=== PATIENT | male | born 1975 | race Caucasian/White ===

== ENCOUNTER 2023-07-24 11:07 | Emergency (ER) | payer SELFPAY ==
[~2023-07-24] VITALS: Ht 185.4 cm; Wt 131.5 kg
[2023-07-24] MEDS ORDERED: ZESTRIL40 MG PO (11:31)
[2023-07-24] MEDS ORDERED: ALLOPURINOL100 MG PO ×2 (11:31→19:27)
[2023-07-24 13:47] VITALS: BP 190/127
[2023-07-24] MEDS ORDERED: LISINOPRIL40 MG PO (19:27)
== END 2023-07-24 13:49 | disposition home or self-care (01) ==
LOC: ED 11:07
DX: I10 Essential (primary) hypertension (principal); M1A.9XX0 Chronic gout, unspecified, without tophus (tophi); Z91.148 Patient's other noncompliance with medication regimen for other reason; Z79.899 Other long term (current) drug therapy

== ENCOUNTER 2023-11-17 15:51 | Emergency (ER) | payer OTHER ==
[~2023-11-17] VITALS: Ht 185.4 cm; Wt 140.1 kg
[~2023-11-17 15:51] MED LIST: ALLOPURINOL100 MG PO; LISINOPRIL40 MG PO; ZESTRIL40 MG PO
[2023-11-17 16:29] LABS: BASOPHILS 1.3 % (0-2); EOSINOPHILS 5.1 % (0-6); HEMATOCRIT 40.3 % (35.0-50.0); HEMOGLOBIN 14.5 g/dL (12.0-18.0); MCH 31.2 (27-36); MCHC 35.9 g/dl (30-36); MCV 86.7 fl (81-99); MONOCYTES 5.5 % (0-12); NEUTROPHILS 54.1 % (39-80); PLATELET COUNT 288 K/uL (140-440); RBC 4.65 M/ul (4.3-5.7); RDW 13.6 (10.5-15.0)
[2023-11-17 16:44] LABS: ALBUMIN 3.5 g/dL (3.4-5.0); ALBUMIN/GLOBULIN RATIO 0.81 (1.1-2.4); ANION GAP 15.5 (7-21); BILIRUBIN, TOTAL 0.6 ng/dL (0.2-1.0); BUN/CREATININE RATIO 10.71 (6.0-28.6); CALCIUM 8.7 mg/dL (8.5-10.1); CREATININE, SERUM 1.12 mg/dL (0.70-1.30); POTASSIUM 3.5 mmol/L (3.5-5.1); PROTEIN, TOTAL 7.8 g/dL (6.4-8.2)
[2023-11-17 16:55] LABS: BILIRUBIN, URINE NEGATIVE (negative); BLOOD/HGB, URINE TRACE-I (Negative); KETONE, URINE TRACE (Negative); LEUK ESTERASE, URINE NEGATIVE (negative); NITRITE, URINE NEGATIVE (negative)
[2023-11-17 17:03] LABS: EPITHELIAL CELLS, URINE SQUAMOUS 1+ /lpf (0-1+)
[2023-11-17 17:04] LABS: BACTERIA, URINE NONE SEEN /hpf (negative); CASTS, URINE NONE SEEN \\lpf; COLLECTION TYPE, URINE CLEAN CATCH; CRYSTALS, URINE NONE SEEN (0-1+); REFLEX CULTURE, URINE No (No)
[2023-11-17] MEDS ORDERED: ZESTRIL40 MG PO (18:52)
[2023-11-17] MEDS ORDERED: HYDROCHLOROTHIA25 MG PO (18:52)
[2023-11-17] MEDS ORDERED: METFORMIN HCL500 MG PO (18:52)
[2023-11-17] MEDS ORDERED: K-TAB ER20 MEQ PO (18:52)
[2023-11-17 19:25] VITALS: BP 128/93
== END 2023-11-17 19:25 | disposition home or self-care (01) ==
LOC: ED 15:51
PROVIDERS: Emergency Medicine
DX: I10 Essential (primary) hypertension (principal); E11.9 Type 2 diabetes mellitus without complications; K42.9 Umbilical hernia without obstruction or gangrene; E66.9 Obesity, unspecified; Z68.41 Body mass index [BMI] 40.0-44.9, adult; M10.9 Gout, unspecified
CPT/HCPCS: 36415; 71275; 74174; 80053; 81001; 83690; 85025; 96375; 96376; 99284-25; J1170; J2405; Q9967

== ENCOUNTER 2023-12-03 10:47 | Emergency (ER) | payer OTHER ==
[~2023-12-03] VITALS: Ht 185.4 cm; Wt 138.0 kg
[~2023-12-03 10:47] MED LIST changes: +HYDROCHLOROTHIA25 MG PO; +K-TAB ER20 MEQ PO; +METFORMIN HCL500 MG PO
--- OUTSIDE RECORDS SUMMARY | 2023-12-03 10:55 | XMS ---
PreManage Notification: MACY REYES Security Success Coach Events No recent Security Events currently on file CRITERIA MET - [facility] - 2 Visits in 30 Days CARE PROVIDERS -Milagros- Dentist: Neurologist [facility] PHONE: [phone] [employer]OX [employer] Physician Swimmer Current PHONE: Unknown CHECO MORAN [facility] Current PHONE: [phone] Chavez has no Care Guidelines for this patient. E.Lalit VISIT COUNT (12 MO.) [address] [facility] TOTAL 4 NOTE: Visits indicate total known visits. ED/UCC VISIT TRACKING (12 MO.) 12/03/2023 10:48 [facility] [place] TYPE: Emergency COMPLAINT: - L FOOT SWELLING/PAIN 11/26/2023 10:53 [facility] [place] TYPE: Emergency COMPLAINT: - VERTIGO DIAGNOSES: - Benign paroxysmal vertigo, right ear - Dizziness and giddiness - Essential (primary) hypertension - joint terminal attack controller (current) use of oral hypoglycemic drugs - Other longterm (current) drug therapy - Type 2 diabetes mellitus without complications 11/17/2023 15:52 [facility] [place] TYPE: Emergency COMPLAINT: - ABD PAIN, NAUSEA, SWEATS DIAGNOSES: - Body mass index [BMI] 40.0-44.9, adult - Essential (primary) hypertension - Gout, unspecified - Nausea - Obesity, unspecified - Type 2 diabetes mellitus without complications - Umbilical hernia without obstruction or gangrene 07/24/2023 11:08 [facility] [place] TYPE: Emergency COMPLAINT: - L KNEE PAIN, POSS GOUT FLARE UP, NAUSEA, HEADACHE DIAGNOSES: - Chronic gout, unspecified, without tophus (tophi) - Essential (primary) hypertension - Other longterm (current) drug therapy - PATIENT'S OTHER NONCOMPL WITH MEDS REGIMEN FOR OTH INPATIENT VISIT TRACKING (12 MO.) No inpatient visits to display in this time frame [email or web address]
[2023-12-03] MEDS ORDERED: PREDNISONE20 MG PO (11:02)
[2023-12-03] MEDS ORDERED: COLCHICINE0.6 M1 PO (11:02)
[2023-12-03 11:14] VITALS: BP 155/101
== END 2023-12-03 11:15 | disposition home or self-care (01) ==
LOC: ED 10:47
DX: M10.9 Gout, unspecified (principal); I10 Essential (primary) hypertension; E11.9 Type 2 diabetes mellitus without complications; Z79.899 Other long term (current) drug therapy; Z79.84 Long term (current) use of oral hypoglycemic drugs
CPT/HCPCS: 99283

== ENCOUNTER 2024-11-09 15:16 | Inpatient (IN) | payer BC, OTHER ==
[~2024-11-09] VITALS: Ht 185.4 cm; Wt 126.2 kg
[~2024-11-09 15:16] MED LIST changes: +COLCHICINE0.6 M1 PO; +LOMOTIL TABLET1 EACH PO; +ONDANSETRON ODT8 MG PO; +PREDNISONE20 MG PO
[2024-11-09] MEDS ORDERED: OZEMPIC0.25 MG/02 SUB-Q (15:37)
[2024-11-09] MEDS ORDERED: ondansetron HCL 4 MG/2 ML VIAL IV ONE (16:15)
[2024-11-09 16:32] LABS: BASOPHILS 0.8 % (0-2); EOSINOPHILS 4.1 % (0-6); HEMATOCRIT 41.9 % (35.0-50.0); HEMOGLOBIN 14.2 g/dL (12.0-18.0); LYMPHOCYTES 36.6 % (24-44); MCH 30.6 (27-36); MCHC 33.9 g/dl (30-36); MCV 90.1 fl (81-99); MONOCYTES 5.8 % (0-12); NEUTROPHILS 52.7 % (39-80); PLATELET COUNT 305 K/uL (140-440); RBC 4.65 M/ul (4.3-5.7); RDW 13.7 (10.5-15.0)
[2024-11-09 16:35] LABS: CORONAVIRUS COVID-19 AG NEGATIVE (NEGATIVE); INFLUENZA A AG NEGATIVE (NEGATIVE); INFLUENZA B AG NEGATIVE (NEGATIVE)
[2024-11-09 16:44] LABS: ALBUMIN 3.9 g/dL (3.4-5.0); ALBUMIN/GLOBULIN RATIO 0.91 (1.1-2.4); ANION GAP 14.8 (7-21); BILIRUBIN, TOTAL 1.1 ng/dL (0.2-1.0); BUN/CREATININE RATIO 10.04 (6.0-28.6); CALCIUM 9.2 mg/dL (8.5-10.1); CREATININE, SERUM 2.49 mg/dL (0.70-1.30); POTASSIUM 4.8 mmol/L (3.5-5.1); PROTEIN, TOTAL 8.2 g/dL (6.4-8.2)
[2024-11-09] MEDS ORDERED: SODIUM CHLORIDE 0.9% 1,000 ML IV PRN (16:45)
[2024-11-09] MEDS ORDERED: LACTATED RINGER'S 1,000 ML IV PRN (17:15)
[2024-11-09] MEDS ORDERED: IBLOOD GLUCOSE TEST STRIP 1 EA TEST XX PRN (19:00)
[2024-11-09] MEDS ORDERED: PROCHLORPERAZINE EDISYLATE 10 MG/2 ML VIAL IV PRN (19:00)
[2024-11-09] MEDS ORDERED: LACTATED RINGER'S 1,000 ML IV SCH (19:00)
[2024-11-09] MEDS ORDERED: GLUCAGON,HUMAN RECOMBINANT 1 MG/ML VIAL SUB-Q PRN (19:00)
[2024-11-09] MEDS ORDERED: ondansetron HCL 4 MG/2 ML VIAL IV PRN (19:00)
[2024-11-09] MEDS ORDERED: DEXTROSE 50% 50 ML SYR IV PRN ×2 (19:00)
[2024-11-09] MEDS ORDERED: LACTATED RINGER'S 1,000 ML IV ONE (19:00)
[2024-11-09] MEDS ORDERED: ACETAMINOPHEN 325 MG TAB PO PRN (19:00)
[2024-11-09] MEDS ORDERED: DEXTROSE 5% 1,000 ML IV PRN (19:00)
[2024-11-09 19:41] VITALS: BP 120/74
[2024-11-09] MEDS ORDERED: GLIPIZIDE ER10 MG PO (19:47)
[2024-11-09] MEDS ORDERED: ALLOPURINOL300 MG PO (19:48)
[2024-11-09] MEDS ORDERED: CRESTOR40 MG PO (19:49)
[2024-11-09] MEDS ORDERED: INDOMETHACIN75 MG PO (19:50)
[2024-11-09] MEDS ORDERED: COLCHICINE0.6 M1 PO (19:50)
--- NOTE | 2024-11-09 19:50 | NUR ---
PATIENT TO FLOOR BY POLICE LIEUTENANT PRECINCT. THIS RN ASSUMING CARE. PATIENT TRANSFERRED FROM STRETCHER TO BED INDEPENDENTLY. VS OBTAINED AND RECORDED. IV FLUSHES WNL. PATIENT EDUCATED TO ROOM AND CALL LIGHT. PATIENT VERBILIZES UNDERSTANDING. STRUCTURAL ENGINEERING DRAFTING OFFICER REMAINS IN ROOM.
--- NOTE | 2024-11-09 20:40 | NUR ---
CALL LIGHT ANSWERED. PT NEEDED TO USE BATHROOM. BRICK AND BLOCKER AID LABOR SBA TO BATHROOM WITH CLEAN URINAL. PT VOIDED AND IS BACK IN BED. URINE SAMPLE COLLECTED AND SENT TO LAB. PT GIVEN FRESH ICE WATER, CRACKERS, AND A DIET SODA UPON REQUEST. PT STATES NO FURTHER NEEDS AT THIS TIME. CALL LIGHT WITHIN REACH
[2024-11-09 20:41] LABS: BILIRUBIN, URINE NEGATIVE (negative); BLOOD/HGB, URINE NEGATIVE (Negative); KETONE, URINE NEGATIVE (Negative); LEUK ESTERASE, URINE NEGATIVE (negative); NITRITE, URINE NEGATIVE (negative); PH, URINE 5.5 (5-7)
[2024-11-09] MEDS ORDERED: INSULIN LISPRO 100 UNIT/ML ML SUB-Q SCH (21:00)
[2024-11-09] MEDS ORDERED: HEParin SOD (PORCINE) 5,000 UNIT/ML SDV SUB-Q SCH (21:00)
[2024-11-09] MEDS ORDERED: IBLOOD GLUCOSE TEST STRIP 1 EA TEST VI SCH (21:00)
[2024-11-09] MEDS ORDERED: MELATONIN 3 MG TAB PO PRN (21:00)
--- NOTE | 2024-11-09 21:03 | NUR ---
NEW BAG IV FLUID INFUSING PER ORDER.
[2024-11-09 22:15] LABS: ANION GAP 12.4 (7-21); BUN/CREATININE RATIO 11.68 (6.0-28.6); CALCIUM 8.6 mg/dL (8.5-10.1); CREATININE, SERUM 2.14 mg/dL (0.70-1.30); POTASSIUM 4.4 mmol/L (3.5-5.1)
--- NOTE | 2024-11-09 22:39 | NUR ---
PATIENT RESTING IN BED. ASSESSMENT COMPLETE. PATIENT DENIES FURTHER NEEDS AT THIS TIME. CALL LIGHT IN REACH.
--- NOTE | 2024-11-09 23:00 | NUR ---
PATIENT STATED THAT STAFF IS ALLOWED TO UPDATE HIS MOTHER ON HIS CARE IF SHE CALLS.
[2024-11-10] VITALS (11 sets, daily range): BP systolic 101–145; BP diastolic 56–95
--- NOTE | 2024-11-10 00:35 | NUR ---
PATIENT RESTING IN BED. LEFT ELBOW DRESSING REMOVED. PATIENT REPORTS HE SEES DAY SURGERY OUTPATIENT AND THE DRESSING WAS CHANGED ON 11/09/24. PHOTO CONSENT SIGNED. PHOTOS PLACED IN CHART. WOUND PACKING IN PLACE. "PACKING IN PLACE" SIGN ON PATIENTS DOOR. NEW BAG IV FLUID INFUSING. NO FURTHER NEEDS. CALL LIGHT IN REACH.
--- NOTE | 2024-11-10 02:26 | NUR ---
PATIENT RESTING IN BED. DENIES NEEDS AT THIS TIME. CALL LIGHT IN REACH.
--- NOTE | 2024-11-10 04:38 | NUR ---
PATIENT RESTING IN BED. VS AND I&Os OBTAINED AND RECORDED. PATIENT REPORTS 4/10 BILAT LOWER BACK PAIN. PRN PAIN MEDICATION ADMINSITERED. NO FURTHER NEEDS. CALL LIGHT IN REACH.
[2024-11-10 05:11] LABS: HEMOGLOBIN 12.1 g/dL (12.0-18.0); RBC 3.96 M/ul (4.3-5.7)
[2024-11-10 05:15] LABS: BASOPHILS 1.2 % (0-2); EOSINOPHILS 5.5 % (0-6); HEMATOCRIT 35.6 % (35.0-50.0); LYMPHOCYTES 53.6 % (24-44); MCH 30.5 (27-36); MCHC 33.9 g/dl (30-36); MCV 89.9 fl (81-99); MONOCYTES 6.3 % (0-12); NEUTROPHILS 33.4 % (39-80); PLATELET COUNT 212 K/uL (140-440); RDW 13.4 (10.5-15.0)
[2024-11-10 05:24] LABS: ALBUMIN 3.1 g/dL (3.4-5.0); ALBUMIN/GLOBULIN RATIO 0.89 (1.1-2.4); ANION GAP 11.5 (7-21); BILIRUBIN, TOTAL 0.8 ng/dL (0.2-1.0); BUN/CREATININE RATIO 11.85 (6.0-28.6); CALCIUM 8.8 mg/dL (8.5-10.1); CREATININE, SERUM 1.94 mg/dL (0.70-1.30); MAGNESIUM 1.6 mg/dL (1.8-2.4); PHOSPHORUS, INORGANIC 3.4 mg/dL (2.5-4.9); POTASSIUM 4.5 mmol/L (3.5-5.1); PROTEIN, TOTAL 6.6 g/dL (6.4-8.2)
--- NOTE | 2024-11-10 07:22 | NUR ---
REPORT RECEIVED FROM SIDING APPLICATOR RN ROSIE. PATIENT IS LYING IN BED WITH EYES CLOSED AND RESPIRATIONS ARE EVEN AND UNLABORED. CALL LIGHT AND PERSONAL BELONGINGS ARE WITHIN REACH.
--- NOTE | 2024-11-10 08:48 | NUR ---
0800 INSULIN DOSE HELD DUE TO BLOOD SUGAR OF 85. 0900 HEPARIN DOSE ADMINISTERED PER THE EMAR. PATIENT IS SITTING UPRIGHT IN BED AND TALKING ON THE PHONE UPON RN ENTERING THE ROOM. PATIENT ENDED PHONE CALL. RN GOT PATIENT DIET ZAMZAM PER PATIENT REQUEST. PATIENT IS WORKING ON HIS BREAKFAST TRAY. PATIENT STATED NO FURTHER NEEDS AT THIS TIME. CALL LIGHT AND PERSONAL BELONGINGS ARE WITHIN REACH.
[2024-11-10] MEDS ORDERED: MAGNESIUM SULFATE 2 GM/50 ML BAG IV SCH (09:15)
--- NOTE | 2024-11-10 09:50 | NUR ---
FIRST BAG OF MAGNESIUM SULFATE STARTED AT THIS TIME. VITAL SIGNS AND INTAKE AND OUTPUT VALUES DOCUMENTED IN THE CHART. FULL ASSESSMENT COMPLETE AND DOCUMENTED IN THE CHART. PATIENT IS ALERT AND ORIENTED TIMES FOUR. PATIENT IS INDEPENDENT IN THE ROOM. PATIENT WITH NO COMPLAINS OF PAIN. IV SITE FLUSHED WITH 10 ML NORMAL SALINE. LR IS INFUSING AT 200 ML/HR. IV DRESSING IS CLEAN, DRY, AND INTACT. PATIENT IS ON A 60 GRAM CARB DIET. BOWEL TONES ARE ACTIVE IN ALL FOUR QUDRANTS. LAST BM WAS 11/09/24. CARDIAC WITH NORMAL S1 AND S2 ON AUSCULTATION. RADIAL AND PEDAL PULSES ARE STRONG BILATERALLY. SENSATION INTACT. PATIENT REPORTS TINGLING IN BILATERAL FEET. PATIENT IS ON ROOM AIR AND LUNG SOUNDS ARE CLEAR IN THE UPPER LOBES AND DIMINISHED IN THE BASES. SKIN WITH ALEVYN NOTED ON THE LEFT ELBOW AND SCATTERED TATTOOS. PATIENT STATED NO FURTHER NEEDS AT THIS TIME. CALL LIGHT AND PERSONAL BELONGINGS ARE WITHIN REACH.
--- NOTE | 2024-11-10 10:21 | NUR ---
PATIENT IS SITTING UPRIGHT IN BED WITH THE HOB. PATIENT WITH EYES OPEN AND RESPIRATIONS ARE EVEN AND UNLABORED. CALL LIGHT AND PERSONAL BELONGINGS ARE WITHIN REACH.
--- NOTE | 2024-11-10 11:45 | NUR ---
PATIENT IS LYING IN BED WITH HOB ELEVATED AND WATCHING TV. SECOND BAG OF MAGNESIUM SULFATE STARTED AT THIS TIME. PATIENT STATED BACK IN "THE KIDNEYS AND BACK IS A 3-4 OUT OF TEN". MD IS AT THE BEDSIDE AT THIS TIME. PATIENT IS NOT REQUESTING ANYTHING FOR PAIN. URINAL EMPTIED. DRESSING ON THE ELBOW CHANGED DUE TO LEAKING OF PURULENT DRAINAGE. PATIENT STATED NO FURTHER NEEDS AT THIS TIME. CALL LIGHT AND PERSONAL BELONGINGS ARE WITHIN REACH.
[2024-11-10] MEDS ORDERED: PHARMACY RENAL DOSE ADJUSTMENT 1 DOSE MISC PO SCH (12:00)
[2024-11-10] MEDS ORDERED: OMEPRAZOLE20 MG PO (12:11)
[2024-11-10] MEDS ORDERED: METFORMIN HCL500 M1 PO (12:12)
[2024-11-10] MEDS ORDERED: HYDROCHLOROTHIA25 MG PO (12:15)
--- NOTE | 2024-11-10 12:48 | NUR ---
PATIENT IS LYING IN BED WITH HOB ELEVATED. LUNCH TRAY REMOVED. PATIENT STATED NO NEEDS AT THIS TIME. CALL LIGHT AND PERSONAL BELONGINGS ARE WITHIN REACH.
--- NOTE | 2024-11-10 13:56 | NUR ---
PATIENT IS LYING IN BED ON THEIR LEFT SIDE WITH EYES CLOSED AND RSPIRATIONS ARE EVEN AND UNLABORED. CALL LIGHT AND PERSONAL BELONGINGS ARE WITHIN REACH.
--- NOTE | 2024-11-10 14:23 | NUR ---
PATIENT IS LYING IN BED WITH THE HOB ELEVATED. IV SITE FLUSHED WITH 10 ML NORMAL SALINE. LR IS INFUSING AT 200 ML/HR. IV DRESSING IS CLEAN, DRY, AND INTACT. PATIENT WITH NO COMPLAINTS OF PAIN WHEN ASKED BY RN. BOWEL TONES ARE ACTIVE IN ALL FOUR QUADRANTS. PATIENT WITH NO COMPLAINTS OF NAUSEA OR VOMITING. VITAL SIGNS AND INTAKE AND OUTPUT VALUES ARE DOCUMENTED IN THE CHART. PATIENT STATED NO FURTHER NEEDS AT THIS TIME. CALL LIGHT AND PERSONAL BELONGINGS ARE WITHIN REACH.
--- NOTE | 2024-11-10 15:49 | NUR ---
PATIENT IS LYING IN BED WITH HOB ELEVATED. URINAL DUMPED AT THIS TIME. PATIENT STATED NO FURTHER NEEDS. PATIENT WITH EYES OPEN AND RESPIRATIONS ARE EVEN AND UNLABORED. CALL LIGHT AND PERSONAL BELONGINGS ARE WITHIN REACH.
[2024-11-10 16:11] LABS: ANION GAP 9.7 (7-21); BUN/CREATININE RATIO 13.07 (6.0-28.6); CALCIUM 9.5 mg/dL (8.5-10.1); CREATININE, SERUM 1.53 mg/dL (0.70-1.30); POTASSIUM 4.7 mmol/L (3.5-5.1)
--- NOTE | 2024-11-10 16:42 | NUR ---
MED REC COMPLETE
--- NOTE | 2024-11-10 16:48 | NUR ---
PATIENT IS LYING IN BED WITH EYES OPEN AND WATCHING TV. RESPIRATIONS ARE EVEN AND UNLABORED. PATIENT STATED NO FURTHER NEEDS AT THIS TIME. CALL LIGHT AND PERSONAL BELONGINGS ARE WITHIN REACH.
--- NOTE | 2024-11-10 17:47 | NUR ---
NEW BAG OF LR STARTED AT THIS TIME. PATIENT GIVEN A MIQUEL CINDY AT THIS TIME. CALL LIGHT AND PERSONAL BELONGINGS ARE WITHIN REACH.
--- NOTE | 2024-11-10 18:23 | NUR ---
PATIENT IS LYING IN BED WITH HOB ELEVATED. PATIENT WITH A VISITOR SITTING IN THE RECLINER AND SPEAKING WITH THE PATIENT. RESPIRATIONS ARE EVEN AND UNLABORED. CALL LIGHT AND PERSONAL BELONGINGS ARE WITHIN REACH.
--- NOTE | 2024-11-10 19:37 | NUR ---
REPORT RECEIVED FROM DAY SHIFT RN. PT LYING IN BED ALERT AND ORIENTED. DENIES NEEDS. WHITE BOARD UPDATED. CALL LIGHT IN REACH.
--- NOTE | 2024-11-10 21:03 | NUR ---
EVENING ASSESSMENT COMPLETE. SCHEDULED MEDS ADMIN PER EMAR. PT REPORTS BILAT FLANK PAIN 01/24. PRN FOR PAIN ADMIN PER EMAR. PT DENIES N/V OR DIARRHEA. IVF INFUSING PER ORDER. URINAL EMPTIED OF 500 ML CLEAR YELLOW URINE. FRESH WATER PROVIDED. PT DENIES QUESTIONS OR CONCERNS. VISITOR AT BEDSIDE. CALL LIGHT IN REACH.
--- NOTE | 2024-11-10 23:14 | NUR ---
IV PUMP ALARMING. ISSUE RESOLVED. NEW BAG IVF INFUSING PER ORDER. PT REPORTS FLANK PAIN IMPROVED. URINAL EMPTIED. NO FURTHER NEEDS.
--- NOTE | 2024-11-11 01:09 | NUR ---
PT LYING ON RIGHT SIDE RESTING IN BED WITH EYES CLOSED. RESPIRATIONS EVEN. CALL LIGHT IN REACH.
--- NOTE | 2024-11-11 02:58 | NUR ---
PT UP TO USE URNAL TO VOID 800 ML CLEAR YELLOW URINE. BACK TO BED. GAIT STEADY. NO C/O PAIN OR NAUSEA AT THIS TIME. PAM CRACKERS GIVEN PER REQUEST. FRESH WATER PROVIDED. NO FURTHER NEEDS. CALL LIGHT IN REACH.
[2024-11-11 05:10] VITALS: BP 137/93
[2024-11-11 05:13] VITALS: BP 137/93
[2024-11-11 05:17] LABS: BASOPHILS 1.1 % (0-2); HEMOGLOBIN 11.8 g/dL (12.0-18.0); LYMPHOCYTES 48.4 % (24-44); MCHC 34.8 g/dl (30-36); MCV 89.1 fl (81-99); MONOCYTES 5.7 % (0-12); NEUTROPHILS 38.8 % (39-80); PLATELET COUNT 208 K/uL (140-440); RBC 3.81 M/ul (4.3-5.7); RDW 13.5 (10.5-15.0)
--- NOTE | 2024-11-11 05:18 | NUR ---
LAB IN FOR MORNING DRAW. VS AND I&O OBTAINED. PT DENIES PAIN OR NAUSEA. SUGAR FREE SODA PROVIDED PER REQUEST. NO FURTHER NEEDS. CALL LIGHT IN REACH.
[2024-11-11 05:29] LABS: ALBUMIN/GLOBULIN RATIO 0.86 (1.1-2.4); ANION GAP 10.4 (7-21); BILIRUBIN, TOTAL 0.4 ng/dL (0.2-1.0); BUN/CREATININE RATIO 11.67 (6.0-28.6); CALCIUM 9.1 mg/dL (8.5-10.1); CREATININE, SERUM 1.37 mg/dL (0.70-1.30); POTASSIUM 4.4 mmol/L (3.5-5.1); PROTEIN, TOTAL 6.5 g/dL (6.4-8.2)
--- NOTE | 2024-11-11 07:11 | NUR ---
REPORT RECEIVED FROM ORE CHARGER CHASTITY MOLINA. PATIENT IS LYING ON THEIR LEFT SIDE WITH EYES CLOSED AND RESPIRATIONS ARE EVEN AND UNLABORED. UPON ENTERING ROOM PATIENT OPENED HIS EYES. PATIENT STATED NO NEEDS AT THIS TIME. CALL LIGHT AND PERSONAL BELONGINGS ARE WITHIN REACH.
--- NOTE | 2024-11-11 08:43 | NUR ---
Board has been updated and call light has been placed within reach. No request from patient at this time
[2024-11-11] MEDS ORDERED: MAGNESIUM SULFATE 2 GM/50 ML BAG IV SCH (09:00)
[2024-11-11 09:36] VITALS: BP 141/92
--- NOTE | 2024-11-11 09:50 | NUR ---
SECOND MAGNESIUM SULFATE INFUSION STARTED AT THIS TIME. FULL ASSESSMENT COMPLETE AND DOCUMENTED IN THE CHART. PATIENT IS ALERT AND ORIENTED TIMES FOUR. PATIENT IS INDEPENDENT IN THE ROOM. IV SITE FLUSHED WITH 10 ML NORMAL SALINE. LR IS INFUSING AT 200 ML/HR. IV DRESSING IS CLEAN, DRY, AND INTACT. PATIENT IS ON A 60 GRAM CARB DIET. BOWEL TONES ARE ACTIVE IN ALL FOUR QUADRANTS. CARDIAC WITH NORMAL S1 AND S2 ON AUSCULTATION. RADIAL AND PEDAL PULSES ARE STRONG BILATERALLY. CAPILLARY REFILL IS LESS THAN 3 SECONDS IN THE UPPER AND LOWER EXTREMITIES BILATERALLY. SENSATION INTACT WITH BILATERAL LOWER EXTREMITIES WITH TINGLING NOTED. PATIENT IS ON ROOM AIR. LUNG SOUNDS ARE CLEAR IN ALL LUNG [place] BILATERALLY AND HAS NO COMPLAINTS OF SOB. LAST BM WAS 11/09/24. PATIENT RATED PAIN 5/10 IN THE TEETH AND HEADACHE. SKIN WITH ALEVYN ON THE LEFT ELBOW WITH PURULENT DRAINAGE NOTED. DRESSING INTACT. SKIN WITH SCATTERED TATTOOS. PATIENT STATED NO FURTHER NEEDS AT THIS TIME, CALL LIGHT AND PERSONAL BELONGINGS ARE WITHIN REACH.
[2024-11-11 09:55] VITALS: BP 141/92
--- NOTE | 2024-11-11 10:25 | NUR ---
PATIENT IS SITTING UPRIGHT IN BED AND LOOKING ON THEIR PHONE. PATIENT WITH LR INFUSING AT 200 ML/HR AND MAGNESIUM SULFATE INFUSING WELL. PATIENT STATED NO NEEDS AT THIS TIME. CALL LIGHT AND PERSONAL BELONGINGS ARE WITHIN REACH.
--- NOTE | 2024-11-11 11:27 | NUR ---
PATIENT IS LYING ON THEIR SIDE AND LOOKING ON THEIR PHONE. PATIENT WITH NO COMPLAINTS OF PAIN AT THIS TIME. RESPIRATIONS ARE EVEN AND UNLABORED. CALL LIGHT AND PERSONAL BELONGINGS ARE WITHIN REACH.
[2024-11-11 12:24] LABS: PROCALCITONIN 0.26 ng/mL (())
== END 2024-11-11 12:07 | disposition home or self-care (01) | DRG 684 ==
LOC: ED 15:16 → MS 18:56
PROVIDERS: Internal Medicine; ADMIT Family Medicine; ATTEND Family Medicine
DX: N17.9 Acute kidney failure, unspecified (principal); E83.42 Hypomagnesemia; I95.9 Hypotension, unspecified; E11.9 Type 2 diabetes mellitus without complications; I10 Essential (primary) hypertension; M10.9 Gout, unspecified; Z90.49 Acquired absence of other specified parts of digestive tract; Z79.84 Long term (current) use of oral hypoglycemic drugs; Z79.899 Other long term (current) drug therapy
CPT/HCPCS: 36415; 74176; 80048; 80053; 81003; 82803; 83605; 83690; 83735; 84100; 85025; 87040; A9270; J1644; J2405; J3475; J7030; J7121

== ENCOUNTER 2024-11-27 08:16 | Emergency (ER) | payer OTHER, BC ==
[~2024-11-27] VITALS: Ht 185.4 cm; Wt 99.8 kg
[~2024-11-27 08:16] MED LIST changes: +ALLOPURINOL300 MG PO; +CRESTOR40 MG PO; +GLIPIZIDE ER10 MG PO; +INDOMETHACIN75 MG PO; +METFORMIN HCL500 M1 PO; +OMEPRAZOLE20 MG PO; +OZEMPIC0.25 MG/02 SUB-Q
--- OUTSIDE RECORDS SUMMARY | 2024-11-27 08:19 | XMS ---
PreManage Notification: MACY REYES Security Ballet Company Member Events No recent Security Events currently on file CRITERIA MET - [facility] - Visits in 30 Days CARE PROVIDERS DEAN [facility] Current PHONE: [phone] Chavez has no Care Guidelines for this patient. E.Lalit VISIT COUNT (12 MO.) [address] TOTAL 6 NOTE: Visits indicate total known visits. ED/UCC VISIT TRACKING (12 MO.) 11/27/2024 08:16 [facility] TYPE: Emergency COMPLAINT: - LT ELBOW INJURY 11/09/2024 15:17 [facility] [place] TYPE: Emergency COMPLAINT: - COLD SYMPTOMS/LOW BLOOD PRESSURE 09/30/2024 22:49 [facility] [place] TYPE: Emergency DIAGNOSES: - Infection following a procedure, other surgical site, initial encounter - L ELBOW SWELLING - POST-OP L ELBOW SWELLING 09/02/2024 22:05 [facility] [place] TYPE: Emergency DIAGNOSES: - POST OP INFECTION - Unspecified synovitis and tenosynovitis, unspecified hand 01/26/2024 14:[address] [facility] [place] TYPE: Emergency COMPLAINT: - ABD PAIN, N/D DIAGNOSES: - Diarrhea, unspecified - Essential (primary) hypertension - Gout, unspecified - shelter (current) use of oral hypoglycemic drugs - Noninfective gastroenteritis and colitis, unspecified - Other [place] [facility] (current[facility] drug therapy - Type 2 diabetes mellitus without complications 12/03/2023 10:48 [facility] [place] TYPE: Emergency COMPLAINT: - L FOOT SWELLING/PAIN DIAGNOSES: - Essential (primary) hypertension - Gout, unspecified - shelter (current) use of oral hypoglycemic drugs - Other [place] [facility] (current) drug therapy - Type 2 diabetes mellitus without complications INPATIENT VISIT TRACKING (12 MO.) 11/09/2024 18:[address] [facility] [place] TYPE: Medical Surgical COMPLAINT: - BRIANDA DIAGNOSES: - Acquired absence of other specified parts of digestive tract - Acute kidney failure, unspecified - Essential (primary) hypertension - Gout, unspecified - Hypomagnesemia - Hypotension, unspecified - termite helper (current) use of oral hypoglycemic drugs - Other director long term care (current) drug therapy - Type 2 diabetes mellitus without complications [email or web address]
[2024-11-27] MEDS ORDERED: OXYCODONE HCL5 MG PO (09:16)
[2024-11-27 09:20] VITALS: BP 139/106
== END 2024-11-27 09:20 | disposition home or self-care (01) ==
LOC: ED 08:16
DX: M25.522 Pain in left elbow (principal); W00.0XXA Fall on same level due to ice and snow, initial encounter; I10 Essential (primary) hypertension; E11.9 Type 2 diabetes mellitus without complications; G51.0 Bell's palsy; Z79.84 Long term (current) use of oral hypoglycemic drugs; Z79.899 Other long term (current) drug therapy
CPT/HCPCS: 73080; 99283

== ENCOUNTER 2024-12-21 22:03 | Emergency (ER) | payer BC, OTHER ==
[~2024-12-21] VITALS: Ht 185.4 cm; Wt 100.0 kg
[~2024-12-21 22:03] MED LIST changes: +OXYCODONE HCL5 MG PO
--- OUTSIDE RECORDS SUMMARY | 2024-12-21 22:10 | XMS ---
PreManage Notification: MACY REYES Security Hand Spring Repairer Helper Events No recent Security Events currently on file CRITERIA MET - [facility] - Visits in 30 Days CARE PROVIDERS DEAN [facility] Current PHONE: [phone] Chavez has no Care Guidelines for this patient. E.Lalit VISIT COUNT (12 MO.) [address] TOTAL 6 NOTE: Visits indicate total known visits. ED/UCC VISIT TRACKING (12 MO.) 12/21/2024 22:03 [facility] TYPE: Emergency COMPLAINT: - FLU SYMPTOMS 11/27/2024 08:16 [facility] [place] TYPE: Emergency COMPLAINT: - LT ELBOW INJURY DIAGNOSES: - Ryan's palsy - Essential (primary) hypertension - Fall on same level due to ice and snow, initial encounter - [facility] (current) use of oral hypoglycemic drugs - Other terminal gauger supervisor (current) drug therapy - Pain in left elbow - Type 2 diabetes mellitus without complications 11/09/2024 15:17 [facility] [place] TYPE: Emergency COMPLAINT: - COLD SYMPTOMS/LOW BLOOD PRESSURE 09/30/2024 22:49 [facility] [place] TYPE: Emergency DIAGNOSES: - Infection following a procedure, other surgical site, initial encounter - L ELBOW SWELLING - POST-OP L ELBOW SWELLING 09/02/2024 22:05 [facility] [place] TYPE: Emergency DIAGNOSES: - POST OP INFECTION - Unspecified synovitis and tenosynovitis, unspecified hand 01/26/2024 14:31 [facility] [place] TYPE: Emergency COMPLAINT: - ABD PAIN, N/D DIAGNOSES: - Diarrhea, unspecified - Essential (primary) hypertension - Gout, unspecified - long term care pharmacist (current) use of oral hypoglycemic drugs - Noninfective gastroenteritis and colitis, unspecified - Other terminal gauger supervisor (current) drug therapy - Type 2 diabetes mellitus without complications INPATIENT VISIT TRACKING (12 MO.) 11/09/2024 18:[address] [facility] [place] TYPE: Medical Surgical COMPLAINT: - BRIANDA DIAGNOSES: - Acquired absence of other specified parts of digestive tract - Acute kidney failure, unspecified - Essential (primary) hypertension - Gout, unspecified - Hypomagnesemia - Hypotension, unspecified - long term care pharmacist (current) use of oral hypoglycemic drugs - Other skilled nursing (current) drug therapy - Type 2 diabetes mellitus without complications [email or web address]
[2024-12-21 23:24] LABS: ALBUMIN 3.7 g/dL (3.4-5.0); ALBUMIN/GLOBULIN RATIO 0.9 (1.1-2.4); ANION GAP 13.9 (7-21); BILIRUBIN, TOTAL 0.4 mg/dL (0.2-1.0); BUN/CREATININE RATIO 10.85 (6.0-28.6); CALCIUM 8.9 mg/dL (8.5-10.1); CREATININE, SERUM 1.29 mg/dL (0.70-1.30); POTASSIUM 3.9 mmol/L (3.5-5.1); PROTEIN, TOTAL 7.8 g/dL (6.4-8.2)
[2024-12-22 00:09] LABS: BASOPHILS 0.9 % (0-2); EOSINOPHILS 3.6 % (0-6); HEMATOCRIT 39.4 % (35.0-50.0); HEMOGLOBIN 13.6 g/dL (12.0-18.0); LYMPHOCYTES 37.7 % (24-44); MCH 30.9 (27-36); MCHC 34.5 g/dl (30-36); MCV 89.5 fl (81-99); NEUTROPHILS 51.8 % (39-80); PLATELET COUNT 280 K/uL (140-440); RDW 14.4 (10.5-15.0)
[2024-12-22] MEDS ORDERED: LACTATED RINGER'S 1,000 ML IV ONE (01:00)
[2024-12-22] MEDS ORDERED: ondansetron HCL 4 MG/2 ML VIAL IV ONE (01:00)
[2024-12-22] MEDS ORDERED: FAMOTIDINE 20 MG/ 2 ML VIAL IV ONE (01:00)
[2024-12-22 02:00] LABS: BILIRUBIN, URINE NEGATIVE (negative); BLOOD/HGB, URINE TRACE-I (Negative); KETONE, URINE NEGATIVE (Negative); LEUK ESTERASE, URINE NEGATIVE (negative); NITRITE, URINE NEGATIVE (negative)
[2024-12-22 02:13] LABS: RED BLOOD CELLS, URINE 21-40 /hpf (0-5)
[2024-12-22 02:14] LABS: BACTERIA, URINE RARE /hpf (negative); CASTS, URINE NONE SEEN \\lpf; COLLECTION TYPE, URINE CLEAN CATCH; CRYSTALS, URINE NONE SEEN (0-1+); EPITHELIAL CELLS, URINE SQUAMOUS 1+ /lpf (0-1+); REFLEX CULTURE, URINE No (No)
[2024-12-22] MEDS ORDERED: ONDANSETRON 4 MG HOME.PACK SL ONE (02:15)
[2024-12-22 02:25] VITALS: BP 133/91
== END 2024-12-22 02:26 | disposition home or self-care (01) ==
LOC: ED 22:03
PROVIDERS: Internal Medicine
DX: A08.4 Viral intestinal infection, unspecified (principal); E86.0 Dehydration; I12.9 Hypertensive chronic kidney disease with stage 1 through stage 4 chronic kidney disease, or unspecified chronic kidney disease; E11.22 Type 2 diabetes mellitus with diabetic chronic kidney disease; N18.9 Chronic kidney disease, unspecified; G51.0 Bell's palsy; Z79.84 Long term (current) use of oral hypoglycemic drugs; Z79.899 Other long term (current) drug therapy
CPT/HCPCS: 36415; 80053; 81001; 85025; 96361; 96374; 96375; 99284-25; A9270; J2405; J7121